=== PATIENT | male | born 1940 | race Caucasian/White ===

== ENCOUNTER 2017-10-05 11:09 | Emergency (ER) | payer MEDICARE, OTHER ==
[~2017-10-05] VITALS: Ht 172.7 cm; Wt 74.8 kg
--- NOTE | 2017-10-05 11:18 | ER Report ---
History and Physical Time Seen By MD: 11:18 HPI/ROS CHIEF COMPLAINT: Chest pain HISTORY OF PRESENT ILLNESS: This is a 77-year-old male who presents to the emergency department for chest pain. Patient states that he woke up to use the restroom at about 3:30 this morning, noticed that he had some pain across his chest in the left side, etc. This too may be some muscle strain from washing his car earlier in the day. She states that the pain was present until about 5: 00 he went for a run, no pain with exertion. Denies shortness of breath, nausea , vomiting, diaphoresis, aches, chills no urinary discomfort or diarrhea. Patient is pain-free at the time of examination states he was encouraged to come in by family member. REVIEW OF SYSTEMS: Constitutional: No fever, no chills. Eyes: No discharge. ENT: No sore throat. Cardiovascular: As above. Respiratory: No cough, no shortness of breath. Gastrointestinal: No abdominal pain, no vomiting. Genitourinary: No hematuria. Musculoskeletal: No back pain. Skin: No rashes. Neurological: No headache. Allergies: Coded Allergies: No Known Drug Allergies (Unverified , 10/05/17) Home Meds No Active Prescriptions or Reported Meds Past Medical/Surgical History Patient has a past medical and surgical history of wears glasses, hernia repair , tonsillectomy. Reviewed Nurses Notes: Yes Smoking Status: Current: Every Day Smoker Constitutional Vital Sign - Last 24 Hours 10/05/17 10/05/17 10/05/17 10/05/17 11:16 11:27 11:30 11:45 Temp 98.9 Pulse 62 62 52 Resp 14 16 22 B/P (MAP) 167/91 149/70 (96) 150/65 (93) Pulse Ox 96 94 95 94 O2 Delivery Room Air Room Air 10/05/17 10/05/17 10/05/17 10/05/17 12:15 12:20 12:30 12:45 Pulse 49 49 47 Resp 63 20 B/P (MAP) 156/71 (99) 126/71 (89) Pulse Ox 95 97 95 95 O2 Delivery Room Air 10/05/17 10/05/17 10/05/17 10/05/17 13:00 13:02 13:15 13:30 Pulse 44 46 Resp 16 B/P (MAP) 140/64 (89) 140/64 (89) 117/90 (99) Pulse Ox 95 95 96 96 O2 Delivery Room Air 10/05/17 10/05/17 10/05/17 10/05/17 13:45 14:00 14:15 14:30 Pulse 50 48 B/P (MAP) 129/77 (94) 116/68 (84) Pulse Ox 95 97 96 97 10/05/17 15:01 Pulse 78 Resp 16 B/P (MAP) 129/65 (86) Pulse Ox 94 O2 Delivery Room Air Physical Exam General Appearance: The patient is alert, has no immediate need for airway protection and no signs of toxicity. Eyes: Pupils equal and round no pallor or injection. ENT, Ears: Large amount of cerumen bilaterally. Mouth: Mucous membranes are moist. Throat: Coldstream and moist, no erythema. Respiratory: There are no retractions, lungs are clear to auscultation. Cardiovascular: Regular rate and rhythm, systolic murmur, no clicks or rubs. Gastrointestinal: Abdomen is soft and non tender, no masses, bowel sounds normal. Neurological: Alert and oriented 4. Moving all extremities. Following all commands. No focal neural deficits. Skin: Warm and dry, no rashes. Musculoskeletal: Neck is supple non tender. Extremities are nontender, nonswollen and have full range of motion. DIFFERENTIAL DIAGNOSIS: After history and physical exam differential diagnosis was considered for chest pain including but not limited to myocardial ischemia, pericarditis pulmonary embolus, chest wall pain, pleural inflammation and pulmonary infectious causes. Medical Decision Making Data Points Result Diagram: 10/05/17 1117 10/05/17 1117 Laboratory Hematology Test 10/05/17 11:17 10/05/17 12:02 10/05/17 14:08 Red Blood Count 5.38 M/uL (4.00-5.60) Mean Corpuscular Volume 94.8 fL (80.0-96.0) Mean Corpuscular Hemoglobin 32.3 pg (26.0-33.0) Mean Corpuscular Hemoglobin Concent 34.1 g/dL (32.0-36.0) Red Cell Distribution Width 13.0 % (11.5-14.5) Mean Platelet Volume 8.2 fL (7.2-11.1) Neutrophils (%) (Auto) 79.7 % (39.4-72.5) Lymphocytes (%) (Auto) 13.1 % (17.6-49.6) Monocytes (%) (Auto) 6.5 % (4.1-12.4) Eosinophils (%) (Auto) 0.2 % (0.4-6.7) Basophils (%) (Auto) 0.5 % (0.3-1.4) Nucleated RBC Relative Count (auto) 0.1 /100WBC Neutrophils # (Auto) 8.2 K/uL (2.0-7.4) Lymphocytes # (Auto) 1.3 K/uL (1.3-3.6) Monocytes # (Auto) 0.7 K/uL (0.3-1.0) Eosinophils # (Auto) 0.0 K/uL (0.0-0.5) Basophils # (Auto) 0.0 K/uL (0.0-0.1) Nucleated RBC Absolute Count (auto) 0.01 K/uL Prothrombin Time 13.0 seconds (12.0-14.4) Prothromb Time International Ratio 0.98 Activated Partial Thromboplast Time 32 seconds (23-35) Sodium Level 140 mmol/L (137-145) Potassium Level 3.8 mmol/L (3.5-5.0) Chloride Level 101 mmol/L (98-107) Carbon Dioxide Level 26 mmol/L (22-30) Blood Urea Nitrogen 12 mg/dl (9-21) Creatinine 0.80 mg/dl (0.66-1.25) Glomerular Filtration Rate Calc > 60.0 Random Glucose 165 mg/dl (75-110) Calcium Level 9.6 mg/dl (8.4-10.2) Total Bilirubin 0.7 mg/dl (0.2-1.3) Aspartate Amino Transf (AST/SGOT) 30 U/L (0-35) Alanine Aminotransferase (ALT/SGPT) 40 U/L (0-56) Alkaline Phosphatase 79 U/L (0-126) B-Type Natriuretic Peptide 209 pg/ml (0-100) Total Protein 7.7 gm/dl (6.3-8.2) Albumin 4.3 g/dl (3.5-5.0) Urine Color Yellow Urine Clarity Clear Urine pH 5.0 pH (4.8-9.5) Urine Specific [place] 1.009 Urine Protein Negative mg/dL (NEGATIVE) Urine Glucose (UA) Negative mg/dL (NEGATIVE) Urine Ketones Negative mg/dL (NEGATIVE) Urine Blood Negative (NEGATIVE) Urine Nitrite Negative (NEGATIVE) Urine Bilirubin Negative (NEGATIVE) Urine Urobilinogen Negative mg/dL (0.2-1.9) Urine Leukocyte Esterase Negative (NEGATIVE) Urine RBC 3 /HPF (0-2/HPF) Urine WBC None /HPF (0-5/HPF) Urine Squamous Epithelial Cells None /LPF (</=FEW) Urine Bacteria Negative /HPF (NONE-FEW) Urine Mucus None /HPF (NONE-FEW) Troponin I < 0.012 ng/ml Chemistry Test 10/05/17 11:17 10/05/17 12:02 10/05/17 14:08 White Blood Count 10.3 k/uL (4.5-11.0) Red Blood Count 5.38 M/uL (4.00-5.60) Hemoglobin 17.4 g/dL (14.0-18.0) Hematocrit 51.0 % (42.0-52.0) Mean Corpuscular Volume 94.8 fL (80.0-96.0) Mean Corpuscular Hemoglobin 32.3 pg (26.0-33.0) Mean Corpuscular Hemoglobin Concent 34.1 g/dL (32.0-36.0) Red Cell Distribution Width 13.0 % (11.5-14.5) Platelet Count 150 K/uL (150-450) Mean Platelet Volume 8.2 fL (7.2-11.1) Neutrophils (%) (Auto) 79.7 % (39.4-72.5) Lymphocytes (%) (Auto) 13.1 % (17.6-49.6) Monocytes (%) (Auto) 6.5 % (4.1-12.4) Eosinophils (%) (Auto) 0.2 % (0.4-6.7) Basophils (%) (Auto) 0.5 % (0.3-1.4) Nucleated RBC Relative Count (auto) 0.1 /100WBC Neutrophils # (Auto) 8.2 K/uL (2.0-7.4) Lymphocytes # (Auto) 1.3 K/uL (1.3-3.6) Monocytes # (Auto) 0.7 K/uL (0.3-1.0) Eosinophils # (Auto) 0.0 K/uL (0.0-0.5) Basophils # (Auto) 0.0 K/uL (0.0-0.1) Nucleated RBC Absolute Count (auto) 0.01 K/uL Prothrombin Time 13.0 seconds (12.0-14.4) Prothromb Time International Ratio 0.98 Activated Partial Thromboplast Time 32 seconds (23-35) Glomerular Filtration Rate Calc > 60.0 Calcium Level 9.6 mg/dl (8.4-10.2) Total Bilirubin 0.7 mg/dl (0.2-1.3) Aspartate Amino Transf (AST/SGOT) 30 U/L (0-35) Alanine Aminotransferase (ALT/SGPT) 40 U/L (0-56) Alkaline Phosphatase 79 U/L (0-126) B-Type Natriuretic Peptide 209 pg/ml (0-100) Total Protein 7.7 gm/dl (6.3-8.2) Albumin 4.3 g/dl (3.5-5.0) Urine Color Yellow Urine Clarity Clear Urine pH 5.0 pH (4.8-9.5) Urine Specific [place] 1.009 Urine Protein Negative mg/dL (NEGATIVE) Urine Glucose (UA) Negative mg/dL (NEGATIVE) Urine Ketones Negative mg/dL (NEGATIVE) Urine Blood Negative (NEGATIVE) Urine Nitrite Negative (NEGATIVE) Urine Bilirubin Negative (NEGATIVE) Urine Urobilinogen Negative mg/dL (0.2-1.9) Urine Leukocyte Esterase Negative (NEGATIVE) Urine RBC 3 /HPF (0-2/HPF) Urine WBC None /HPF (0-5/HPF) Urine Squamous Epithelial Cells None /LPF (</=FEW) Urine Bacteria Negative /HPF (NONE-FEW) Urine Mucus None /HPF (NONE-FEW) Troponin I < 0.012 ng/ml Coagulation Test 10/05/17 11:17 Prothrombin Time 13.0 seconds Prothromb Time International Ratio 0.98 Activated Partial Thromboplast Time 32 seconds Urinalysis Test 10/05/17 12:02 Urine Color Yellow Urine Clarity Clear Urine pH 5.0 pH (4.8-9.5) Urine Specific [place] 1.009 Urine Protein Negative mg/dL (NEGATIVE) Urine Glucose (UA) Negative mg/dL (NEGATIVE) Urine Ketones Negative mg/dL (NEGATIVE) Urine Blood Negative (NEGATIVE) Urine Nitrite Negative (NEGATIVE) Urine Bilirubin Negative (NEGATIVE) Urine Urobilinogen Negative mg/dL (0.2-1.9) Urine Leukocyte Esterase Negative (NEGATIVE) Urine RBC 3 /HPF (0-2/HPF) Urine WBC None /HPF (0-5/HPF) Urine Squamous Epithelial Cells None /LPF (</=FEW) Urine Bacteria Negative /HPF (NONE-FEW) Urine Mucus None /HPF (NONE-FEW) EKG/Imaging EKG Interpretation 12 lead EKG: Patient is pain-free Rhythm: Sinus bradycardia, 56 BPM. [place]: normal QRS: normal ST segments: Depression in lead II, III and AVF No previous EKG's for comparison. 12 lead EKG: Repeat EKG, pain-free Rhythm: Sinus bradycardia, 47 bpm. [place]: normal QRS: normal ST segments: Repeat EKG showing same pattern with ST depression in V2, leads 3 and aVF. Imaging PATIENT NAME: Sterling Sun : 1940 MR: [id number] V: [id number] EXAM DATE: ORDERING PHYSICIAN: SEJAL ARMSTRONG TECHNOLOGIST: Location: [facility] Patient: Sterling Sun : 1940 Visit/Account:[id number] Date of Sevice: 10/05/2017 Exam type: CHEST SINGLE AP History: Chest Pain Comparison: None. Findings: The lungs are free of acute effusions, infiltrates or edema. There is no evidence of a pneumothorax or pneumomediastinum. The cardiac silhouette is normal in size. The trachea is midline. IMPRESSION: 1. No acute cardiopulmonary process seen Report Dictated By: Sindhu Gomez MD at 10/05/2017 12:28 PM Report E-Signed By: Sindhu Gomez MD at 10/05/2017 12:29 PM WSN:[email or web address] ED Course/Re-evaluation Clinical Indication for ER IV: IV Access ED Course The patient was admitted to room. A history and physical were obtained. Differential diagnoses were considered. An IV was started. A CBC, CMP and troponin 2 were obtained. Laboratory studies were unremarkable, except for the blood sugar of 165, pt states he did put sugar in his tea this am. UA was obtained which was unremarkable. Single view chest x-ray was negative for any acute cardiopulmonary process. The results were reviewed with patient and his son. Patient was encouraged to follow up with Dr. Mcconnell for any other concerns and future follow up. The patient was also encouraged to return to the ED for worsening symptoms. The patient and his son had no other questions or concerns at this time and were discharged home. Decision to Disposition Date: Oct 05, 2017 Decision to Disposition Time: 14:49 Depart Departure Latest Vital Signs Vital Signs Date Time Temp Pulse Resp B/P (MAP) Pulse Ox O2 Delivery O2 Flow Rate FiO2 10/05/17 15:01 78 16 129/65 (86) 94 Room Air 10/05/17 11:16 98.9 Impression: Primary Impression: Chest pain Condition: Improved Disposition: HOME OR SELF-CARE Referrals: PHILIP MCCONNELL MD (PCP) New Scripts No Active Prescriptions or Reported Meds Patient Instructions: Chest Pain (ED) Additional Instructions: Drink plenty of fluids. Get plenty of rest. Continue with your current medications. Please follow up with Dr. Mcconnell as scheduled. May return to the ED for worsening symptoms. Problem Qualifiers Primary Impression: Chest pain Chest pain type: unspecified Qualified Codes: R07.9 - Chest pain, unspecified GLADYS [id number]-BC Oct 05, 2017 11:18
[2017-10-05] MEDS ORDERED: ASPIRIN 81 MG CHEW PO ONE (11:30)
--- NOTE | 2017-10-05 11:31 | EKG ---
FACILITY: [facility] PATIENT NAME: DILCIA CALDERON : [id number] MR: [id number] V: [id number] EXAM DATE: ORDERING PHYSICIAN: SEJAL ARMSTRONG TECHNOLOGIST: LOC Kaur Reason : CHEST PAIN Blood Pressure : / mmHG Vent. Rate : 056 BPM Atrial Rate : 056 BPM P-R Int : 180 ms QRS Dur : 094 ms QT Int : 428 ms P-R-T Axes : 045 084 -52 degrees QTc Int : 413 ms Sinus bradycardia with sinus arrhythmia Cannot rule out Inferior infarct , age undetermined ST and T wave abnormality, consider lateral ischemia Abnormal ECG No previous ECGs available Confirmed by TOSIN TURPIN ([id number]) on 10/05/2017 2:57:45 PM Referred By: PATTI Confirmed By:TOSIN TURPIN
[2017-10-05 11:39] LABS: PLATELET COUNT, AUTOMATED 150 K/uL (150-450)
[2017-10-05 11:42] LABS: INR 0.98
--- NOTE | 2017-10-05 12:33 | RADIOLOGY IMAGING REPORT ---
FACILITY: [facility] PATIENT NAME: Sterling Sun : 1940 MR: [id number] V: [id number] EXAM DATE: ORDERING PHYSICIAN: SEJAL ARMSTRONG TECHNOLOGIST: Location: [facility] Patient: Sterling Sun : 1940 Visit/Account:[id number] Date of Sevice: 10/05/2017 Exam type: CHEST SINGLE AP History: Chest Pain Comparison: None. Findings: The lungs are free of acute effusions, infiltrates or edema. There is no evidence of a pneumothorax or pneumomediastinum. The cardiac silhouette is normal in size. The trachea is midline. IMPRESSION: 1. No acute cardiopulmonary process seen Report Dictated By: Sindhu Gomez MD at 10/05/2017 12:28 PM Report E-Signed By: Sindhu Gomez MD at 10/05/2017 12:29 PM WSN:[email or web address]
--- NOTE | 2017-10-05 14:17 | EKG ---
[place] [facility] [place] NAME: DILCIA CALDERON : [id number] MR: [id number] V: [id number] EXAM DATE: ORDERING PHYSICIAN: GLADYS TRUONG TECHNOLOGIST: LOC Kaur Reason : REPEAT Blood Pressure : / mmHG Vent. Rate : 047 BPM Atrial Rate : 047 BPM P-R Int : 180 ms QRS Dur : 094 ms QT Int : 458 ms P-R-T Axes : 068 083 -49 degrees QTc Int : 405 ms Marked sinus bradycardia Cannot rule out Inferior infarct (cited on or before 05-OCT-2017) Abnormal ECG When compared with ECG of 05-OCT-2017 11:18, No significant change was found Confirmed by TOSIN TURPIN ([id number]) on 10/05/2017 2:59:23 PM Referred By: PATTI Confirmed By:TOSIN TURPIN
[2017-10-05 15:01] VITALS: BP 129/65
== END 2017-10-05 14:58 | disposition home or self-care (01) ==
LOC: ER 11:22
DX: R07.89 Other chest pain (principal); R00.1 Bradycardia, unspecified
CPT/HCPCS: 36415; 71045; 81001; 83880; 84484; 85025; 85610; 85730; 93005; 99284; A9270; 82040; 82247; 82310; 82374; 82435; 82565; 82947; 84075; 84132; 84155; 84295; 84450; 84460; 84520

== ENCOUNTER → 2018-11-11 | Outpatient (CLI) | payer MEDICARE, OTHER ==
[~2018-11-11] MED LIST: DIPH0.5D12 IM; PNEI IJ
[2018-11-11 10:09] LABS: PLATELET COUNT, AUTOMATED 171 K/uL (150-450)
== END ==
LOC: LAB 09:44
PROVIDERS: ATTEND Family Medicine
DX: I10 Essential (primary) hypertension (principal)
CPT/HCPCS: 36415; 82040; 82247; 82310; 82374; 82435; 82565; 82947; 84075; 84132; 84155; 84295; 84450; 84460; 84520; 85025